=== PATIENT | male | born 1990 | race American Indian/Alaskan Native ===

== ENCOUNTER 2018-01-15 16:03 | Emergency (ER) | payer SELFPAY ==
[2018-01-15 16:19] VITALS: BP 117/77
[2018-01-15 16:43] LABS: Basophils # (Auto) 0.1 K/mm3 (0.0-0.1); Basophils % (Auto) 0.5 % (0.0-1.8); Eosinophils # (Auto) 0.1 K/mm3 (0.0-0.4); Eosinophils % (Auto) 0.7 % (0.0-4.3); Hematocrit 50.9 % (35.5-45.6); Hemoglobin 16.4 gm/dl (11.8-15.2); Lymphocytes # (Auto) 1.7 K/mm3 (1.2-5.4); Lymphocytes % (Auto) 17.2 % (13.4-35.0); Mean Corpuscular HGB Conc 32 % (32-34); Mean Corpuscular Hemoglobin 26 pg (28-32); Mean Corpuscular Volume 80 fl (84-94); Monocytes # (Auto) 0.8 K/mm3 (0.0-0.8); Monocytes % (Auto) 8.2 % (0.0-7.3); Platelet Count 236 K/mm3 (140-440); Red Blood Count 6.36 M/mm3 (3.65-5.03); Red Cell Distribution Width 15.4 % (13.2-15.2)
[2018-01-15 17:04] LABS: BUN/Creatinine Ratio 11; Blood Urea Nitrogen 11 mg/dL (9-20); Hemolysis Index 11
[2018-01-15 17:05] LABS: Bilirubin,Urine NEG (Negative); Blood,Urine NEG (Negative); Color,Urine Yellow (Yellow); Mucus,Urine 3+ /HPF
[2018-01-15 17:12] LABS: Amphetamine Screen,Urine PRESUMPTIVE NEGATIVE; Benzodiazepines Screen,Urine PRESUMPTIVE NEGATIVE; Methadone Screen,Urine PRESUMPTIVE NEGATIVE; Opiate Screen,Urine PRESUMPTIVE NEGATIVE
[2018-01-15 17:18] LABS: Cannabinoid Screen,Urine PRESUMPTIVE POSITIVE; Cocaine Screen,Urine PRESUMPTIVE POSITIVE
== END 2018-01-15 16:56 | disposition left against medical advice (07) ==
LOC: ED 16:03
DX: F29 Unspecified psychosis not due to a substance or known physiological condition (principal); Z53.21 Procedure and treatment not carried out due to patient leaving prior to being seen by health care provider
CPT/HCPCS: 36415; 80048; 80307; 81001; 85025; G0480; 80320

== ENCOUNTER 2018-01-17 07:26 | Emergency (ER) | payer OTHER ==
--- NOTE | 2018-01-17 10:43 | Emergency Department Report ---
ED Male HPI - General Chief complaint: Urogenital-Male Stated complaint: POSSIBLE STD Time Seen by Provider: 01/17/18 10:09 Source: patient Mode of arrival: Ambulatory Limitations: No Limitations - History of Present Illness Initial comments: This is a 27 y.o. male that presents with penile discharge and burning for 3 days. Patient admits to exposure to STD with female and male partners. He is having low abdominal discomfort. He came Tuesday and left prior to medical decision, labs taken then. Denies low back pain, fever, nausea/vomiting, testicular swelling or pain, and penile lesions. MD Complaint: penile discharge -: days(s) (3) Location: penis Radiation: none Severity: moderate Severity scale (0 -10): 7 Quality: aching (low abdomen), burning (with urination) Consistency: intermittent Improves with: none Worsens with: urination new sexual partner discharge (greenish), dysuria. denies: swelling, mass, rash, urinary retention , blood in urine, fever, nausea/vomiting, incontinence - Related Data Sexually active: Yes Previous Rx's Medication Instructions Recorded Last Taken Type Doxycycline Monohydrate 100 mg PO BID 5 Days #10 tablet 01/17/18 Unknown Rx Allergies Allergy/AdvReac Type Severity Reaction Status Date / Time No Known Allergies Allergy Unverified 01/15/18 16:14 ED Review of Systems ROS: Stated complaint: POSSIBLE STD Other details as noted in HPI Constitutional: denies: chills, fever, malaise Respiratory: denies: cough, orthopnea, shortness of breath, SOB with exertion, stridor, wheezing Cardiovascular: denies: chest pain, palpitations, edema, syncope Gastrointestinal: abdominal pain (lower abdomen). denies: nausea, vomiting, diarrhea, constipation Genitourinary: dysuria, discharge (greenish). denies: urgency, frequency, hematuria, testicular pain, testicular mass Musculoskeletal: denies: back pain, joint swelling, arthralgia, myalgia Neurological: denies: headache, weakness, numbness, paresthesias Psychiatric: denies: anxiety, depression ED Past Medical Hx - Past Medical History Hx Psychiatric Treatment: Yes (no diagnosis) - Social History Smoking Status: Never Smoker Substance Use Type: None - Medications Home Medications: Home Medications Medication Instructions Recorded Confirmed Last Taken Type Doxycycline Monohydrate 100 mg PO BID 5 Days #10 tablet 01/17/18 Unknown Rx ED Physical Exam - General Limitations: No Limitations General appearance: alert, in no apparent distress - Respiratory Respiratory exam: Present: normal lung sounds bilaterally. Absent: respiratory distress, wheezes, rales, rhonchi, stridor, decreased breath sounds, prolonged expiratory - Cardiovascular Cardiovascular Exam: Present: regular rate, normal rhythm, normal heart sounds. Absent: systolic murmur, diastolic murmur, rubs, gallop - GI/Abdominal GI/Abdominal exam: Present: soft, normal bowel sounds. Absent: distended, tenderness, guarding, rebound, rigid, organomegaly, mass - Rectal Rectal exam: Present: deferred - Back Exam Back exam: Present: normal inspection, full ROM. Absent: CVA tenderness (R), CVA tenderness (L), muscle spasm, rash noted - Neurological Exam Neurological exam: Present: alert, oriented X3, normal gait - Psychiatric Psychiatric exam: Present: normal affect, normal mood - Skin Skin exam: Present: warm, dry, intact, normal color. Absent: rash ED Course Vital Signs 01/17/18 01/17/18 07:56 09:50 Temperature 98.6 F Pulse Rate 80 76 Respiratory 17 18 Rate Blood Pressure 109/73 Blood Pressure 111/73 [Right] O2 Sat by Pulse 99 100 Oximetry ED Medical Decision Making - Medical Decision Making This is a 27 y.o. male presents with penile discharge for 3 days. Patient was examined by me. Labs ordered Tuesday, BMP, UA, CBC, & urine toxicology. Urine positive for cocaine and marijuana, urine WBC's elevated. Discussed results with patient. Empirically treated for STD's. Given rocephin 250 mg IM, metronidazole 2,000 mg po, & azithromycin 1,000 mg po once in ER. Discharged home in stable condition. Start doxycyline 100 mg po bid x 5 days. Discussed prevention options. F/U with PCP or Health Department for full screening. Critical care attestation.: If time is entered above; I have spent that time in minutes in the direct care of this critically ill patient, excluding procedure time. ED Disposition Clinical Impression: STD exposure Disposition: DC-01 TO HOME OR SELFCARE Is pt being admited?: No Does the pt Need Aspirin: No Condition: Stable Instructions: Safe Sex (ED), Sexually Transmitted Diseases (ED) Additional Instructions: Avoid drinking alcohol while taking antibiotics and for 24 hours after completion. Continue safe sexual intercourse. Follow up with Primary Care Provider or health department. Prescriptions: Doxycycline Monohydrate 100 mg PO BID 5 Days #10 tablet Referrals: [facility] [Outside] - 3-5 Days [facility] [Outside] - 3-5 Days [facility] [Outside] - 3-5 Days Time of Disposition: 10:56 Print Language: [id number]
[2018-01-17] MEDS ORDERED: ROCEPHIN IM ONE (10:54)
[2018-01-17] MEDS ORDERED: ZITHROMAX PO ONE (10:54)
[2018-01-17] MEDS ORDERED: FLAGYL PO ONE (10:54)
[2018-01-17] MEDS ORDERED: XYLOCAINE 1% MPF 5 mL INFILTRATI ONE (10:54)
[2018-01-17 11:32] VITALS: BP 116/69
== END 2018-01-17 11:32 | disposition home or self-care (01) ==
LOC: ED 07:26
DX: R36.9 Urethral discharge, unspecified (principal); R03.0 Elevated blood-pressure reading, without diagnosis of hypertension; Z20.2 Contact with and (suspected) exposure to infections with a predominantly sexual mode of transmission
CPT/HCPCS: 87591; 96372; 99283; J0696